=== PATIENT | female | born 1955 | race Caucasian/White ===

== ENCOUNTER 2017-10-13 08:46 | Day surgery (SDC) | payer BC ==
[2017-10-13] VITALS (9 sets, daily range): BP systolic 141–172; BP diastolic 62–81; PULSE 67–99; TEMP 97.1–98.6
[~2017-10-13] VITALS: Ht 162.6 cm; Wt 89.9 kg
[2017-10-13] MEDS ORDERED: TOPROL XL 50MG50 MG PO (09:31)
[2017-10-13] MEDS ORDERED: AMARYL 2MG T2 MG/TAB PO (09:32)
[2017-10-13] MEDS ORDERED: PROTONIX 40MG T40 MG PO (09:33)
[2017-10-13] MEDS ORDERED: PREMARIN 1.251.25 MG PO (09:34)
[2017-10-13] MEDS ORDERED: JANUVIA 100MG100 MG PO (09:34)
[2017-10-13] MEDS ORDERED: MAXZIDE-25MG TA1 TAB PO (09:35)
[2017-10-13] MEDS ORDERED: GLUCOPHAGE1000 MG PO (09:35)
[2017-10-13] MEDS ORDERED: MULTI VITAMINS1 TAB PO (09:36)
[2017-10-13] MEDS ORDERED: CARDIZEM CD 24240 MG PO (09:37)
[2017-10-13] MEDS ORDERED: ZANTAC 7575 MG PO (09:37)
[2017-10-13] MEDS ORDERED: TYLENOL 8 HR PO (09:38)
[2017-10-13] MEDS ORDERED: VITAMIN D31000 I1 PO (09:39)
[2017-10-13] MEDS ORDERED: BENADRYL25 M2 PO (09:39)
[2017-10-13] MEDS ORDERED: ZYRTEC 10MG10 MG PO (09:40)
[2017-10-13] MEDS ORDERED: CLARITIN 1010 MG/TAB PO (09:40)
[2017-10-14] VITALS: BP 147/72; PULSE 88; TEMP 98.5
[2017-10-14 04:00] VITALS: BP 163/77; PULSE 79; TEMP 98.3
[2017-10-14] MEDS ORDERED: NORCO 325 MG-7.1 TAB PO (06:23)
[2017-10-14 08:28] LABS: HEMATOCRIT 37.8 % (37.0-47.0); HEMOGLOBIN 13.4 g/dl (12.5-16.0)
[2017-10-14 08:34] VITALS: BP 147/75; PULSE 74; TEMP 98.3
== END 2017-10-14 11:21 | disposition home or self-care (01) ==
LOC: SDCO 08:46 → SURG 12:30 → SDCO 10-14 11:21
PROVIDERS: Physician Assistant
DX: E11.610 Type 2 diabetes mellitus with diabetic neuropathic arthropathy (principal); M14.66 Charcot's joint, knee
CPT/HCPCS: OP; G8978-GP; G8979-GP; G8987-GO; G8988-GO; J0690; J1100; J1815; J2250; J2405; J2704; J2765; J3010; J7030